=== PATIENT | male | born 1985 | race Caucasian/White ===

== ENCOUNTER 2016-12-23 21:00 | Emergency (ER) | payer BC ==
[2016-12-23 21:50] VITALS: BP 157/82
--- NOTE | 2016-12-23 21:59 | PHYS DOC ---
Past Medical History Past Medical History: No Pertinent History Past Surgical History: No Surgical History Adult General Chief Complaint Chief Complaint: EYE PROBLEMS HPI HPI Patient is a 31 year old male who presents with right eye irritation. He works around [employer] and was at work today when he got some dust into his right eye. No visual correction. He states it is constant irritation and pain to the right eyebrow. No visual change. Review of Systems Review of Systems Eyes: Denies change in visual acuity, He has redness and irritation to right eye HENT: Denies nasal congestion or sore throat Resp:: no Shortness or air or wheezing Current Medications Current Medications Current Medications Medications (Trade) Dose Ordered Sig/Kendall Start Time Stop Time Status Last Admin Dose Admin Fluorescein Sodium (Ful-Julia) 1 strip 1X ONCE 12/23/16 22:30 12/23/16 22:31 DC 12/23/16 22:17 1 STRIP Tetracaine HCl (Tetracaine) 1 drop 1X ONCE 12/23/16 22:30 12/23/16 22:31 DC 12/23/16 22:17 1 DROP Tobramycin Sulfate (Tobrex Ophth Soln) 1 drop 1X ONCE 12/23/16 23:00 12/23/16 23:01 DC 12/23/16 22:52 1 DROP Allergies Allergies Allergies Coded Allergies Type Severity Reaction Last Updated Verified No Known Drug Allergies 12/23/16 No Physical Exam Physical Exam Constitutional: Well developed, well nourished, no acute distress, non-toxic appearance. Eyes: PERRLA, EOMI, conjunctiva injected on the right, no discharge. Eyelid everted; no retained FB. Visual acuity: right 20/40; Lft 20/20; both 20/20 Current Patient Data Vital Signs Vital Signs Date Time Temp Pulse Resp B/P (MAP) Pulse Ox O2 Delivery O2 Flow Rate FiO2 12/23/16 21:50 98.0 90 16 97 Room Air 98.0 Course & Med Decision Making Course & Med Decision Making Slit lamp exam done; tobramycin drops dispensed Dragon Disclaimer Dragon Disclaimer This electronic medical record was generated, in whole or in part, using a voice recognition dictation system. Departure Departure Impression: Primary Impression: Corneal irritation of right eye Disposition: HOME, SELF-CARE Condition: GOOD Patient Instructions: Conjunctivitis, Chemical Additional Instructions: YOU HAVE NO CORNEAL ABRASION BUT YOU HAVE IRRITATION DUE TO THE GRAIN. USE THE DROPS UP TO 5 X A DAY FOR THE NEXT 3 DAYS OR UNTIL RE-CHECK BY WORK COMP Slit Lamp Exam Procedure Indication: right eye irritation Procedure: The patient was placed in the appropriate position. Anesthesia was tetracaine. Fluorescein staining was placed. The slit lamp exam findings were as follows:right corneal without abrasion or FB. No fluorescein staining uptake. The patient tolerated the procedure well Complications: none LILY BURNS MD Dec 23, 2016 21:59
[2016-12-23] MEDS ORDERED: TETRACAINE 0.5% OPHTH SOLUTION 4ML BOTTLE. OD ONE (22:30)
[2016-12-23] MEDS ORDERED: FLUORESCEIN OPHTH TEST STRIP. OS ONE (22:30)
[2016-12-23] MEDS ORDERED: TOBRAMYCIN 0.3% OPHTH SOLUTION 5ML BOTTLE. OD ONE (23:00)
== END 2016-12-23 22:52 | disposition home or self-care (01) ==
LOC: ER 21:00
DX: H57.8 Other specified disorders of eye and adnexa (principal)
CPT/HCPCS: 99283